=== PATIENT | male | born 1945 | race Caucasian/White ===

== ENCOUNTER 2023-09-12 10:56 | Observation (INO) | payer OTHER ==
[~2023-09-12 10:56] MED LIST: Lactated Ringers 1,000 ML IV ONE
[2023-09-12] MEDS: Ak-Dilate OPHTHALMIC*** 1.065 ML, Cyclogyl 1% OPHTH SOL 1.065 ML, GATIFLOXACIN 0.5% OPH... OP ONE (11:37)
[2023-09-12] MEDS: TETRACAINE 0.5% STERI-UNIT SOL OP ONE ×2 (11:37→11:56)
[2023-09-12] MEDS: Lactated Ringers 1,000 ML IV SCH (11:38)
[2023-09-12] MEDS ORDERED: Zofran 4 MG/2 ML VIAL IV PRN (12:30)
[2023-09-12] MEDS ORDERED: Epinephrine Preservative Free 1 MG/ML IJ ONE (12:30)
[2023-09-12] MEDS ORDERED: DIPRIVAN 200 MG/20 ML IV ONE (13:04)
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
[2023-09-12] MEDS ORDERED: MEDICATION INTERVENTION MC SCH (14:30)
[2023-09-12 14:35] LABS: Hematocrit 38.7 % (40.1-51.0); Hemoglobin 12.8 g/dL (13.7-17.5); Mean Cell Volume 94.4 fL (79.0-92.2); Mean Corpuscular Hemoglobin 31.2 pg (25.7-32.2); Mean Corpuscular Hgb Concent. 33.1 g/dL (32.3-36.5); Mean Platelet Volume 10.7 fL (9.4-12.4); Platelet Count 132 x10^3/uL (163-337); Red Cell Distribution Width 12.6 % (11.6-14.4); White Blood Count 5.5 x10^3/uL (4.23-9.07)
[2023-09-12] MEDS ORDERED: Coreg 3.125 MG PO SCH (15:00)
[2023-09-12] MEDS ORDERED: Lanoxin 0.125MG TABLET PO SCH (15:00)
[2023-09-12 15:17] LABS: ALBUMIN 4.4 g/dL (3.5-5.0); ANION GAP 13.8 MEQ/L (5-15); BILIRUBIN,TOTAL 0.6 mg/dL (0.2-1.3); Creatinine 1 1.17 mg/dL (0.66-1.25); EST GLOMERULAR FILTRATION RATE 63.4 ML/MIN; MAGNESIUM 2.2 mg/dL (1.6-2.3); Potassium 4.5 mmol/L (3.5-5.1); TSH, 3RD Generation 0.482 mIU/L (0.470-4.680); Total Protein 7.7 g/dL (6.3-8.2)
[2023-09-12] MEDS: ENTRESTO 49 MG-51 MG TABLET PO SCH (15:40)
[2023-09-12] MEDS: Cyclobenzaprine 10 MG PO SCH (15:40)
[2023-09-12] MEDS: ECOTRIN 81 MG PO SCH (15:40)
[2023-09-12] MEDS: MAG-OX 400 PO SCH (15:41)
[2023-09-12] MEDS: Vitamin B-12 500 MCG PO SCH (15:41)
[2023-09-12] MEDS: Coreg 3.125 MG PO ONE (15:41)
[2023-09-12] MEDS: ZOCOR 20MG PO SCH (15:41)
[2023-09-12] MEDS: SYNTHROID 88 MCG PO SCH (15:41)
[2023-09-12] MEDS: BUMEX 1 MG PO SCH (15:44)
[2023-09-12] MEDS: BETADINE 5% OPHTHALMIC 30 ML OP ONE (21:44)
[2023-09-12] MEDS: cefUROXime sodium 0.005 GM in Sodium Chloride Flush 30 ML*** 0.5 ML IJ ONE (21:44)
[2023-09-12] MEDS: NON-FORMULARY ITEM OP ONE (21:45)
[2023-09-12] MEDS: ACETAZOLAMIDE 250 MG TABLET PO ONE (21:45)
[2023-09-13 05:06] LABS: Hematocrit 36.2 % (40.1-51.0); Hemoglobin 11.8 g/dL (13.7-17.5); Mean Cell Volume 94.5 fL (79.0-92.2); Mean Corpuscular Hemoglobin 30.8 pg (25.7-32.2); Mean Corpuscular Hgb Concent. 32.6 g/dL (32.3-36.5); Mean Platelet Volume 11.5 fL (9.4-12.4); Platelet Count 139 x10^3/uL (163-337); Red Blood Count 3.83 x10^6/uL (4.63-6.08); Red Cell Distribution Width 13.1 % (11.6-14.4); White Blood Count 5.5 x10^3/uL (4.23-9.07)
[2023-09-13 05:13] VITALS: RESP 17
[2023-09-13 05:32] LABS: ALBUMIN 3.6 g/dL (3.5-5.0); BILIRUBIN,TOTAL 0.6 mg/dL (0.2-1.3); Calcium 9.4 mg/dL (8.4-10.2); Creatinine 1 0.99 mg/dL (0.66-1.25); EST GLOMERULAR FILTRATION RATE 77.5 ML/MIN; Potassium 4.2 mmol/L (3.5-5.1); Total Protein 6.2 g/dL (6.3-8.2)
[2023-09-13 06:07] VITALS: O2SAT 94
[2023-09-13 07:33] VITALS: TEMP 97.6
[2023-09-13] MEDS: Flomax 0.4 MG PO SCH (09:12)
[2023-09-13] MEDS: Lanoxin 0.125MG TABLET PO SCH (09:13)
[2023-09-13] MEDS: Coreg 3.125 MG PO SCH (09:13)
[2023-09-13 09:14] VITALS: BP 116/56; PULSE 71
[2023-09-13] MEDS: Artificial Tears 15 ML OP SCH (09:14)
[2023-09-13] MEDS: PATIENT OWN MEDICATION OP SCH (09:29)
--- NOTE | 2023-09-13 09:32 | PCM.DS ---
Discharge Summary Date of Admission: 09/12/23 14:07 Date of Discharge: 09/13/23 Admitting Physician: DIANNA BLANTON MD Consults: Consults on Case 09/12/23 14:18 Consult Cardiology ROUTINE Primary Care Provider: [facility] Allergies Allergies No Known Drug Allergies Allergy (Verified 09/12/23 11:06) Hospital Summary - Hospital Course Hospital Course: 09/12/23 is a 78 year old male with pmhx of CHF, type II DM, BPH, hypothyroidism, hyerlipidemia, HTN, vitamin B12 deficiency, magnesium deficiency, and vitamin B12 deficiency. Today he has a cataract removal of the left eye. He did not take any of his medications today. Post op EKG shows left bundle branch block. Echo and EKG ordered when pt arrived on the unit. He is in the ICU on tele. He is now bradycardic. IVF stopped d/t heart hx. Tele- cardiology consulted. Beta ivral, and digoxin held for now. HR 50. Pt may need transferred to higher level of care, awaiting cardiology recs. Pre and post procedure EKG reviewed. He denies CP or SOB. He explained he feels fine. Discussed with pt and in detail heart arrhythmia and that cardiology will discuss as well today. He denies any further concerns at this time. 09/13/23 Pt sitting up in bed. He states he feels fine. No CP, no eye pain from surgery. Restarted home meds today that were held yesterday. Will see how pt tolerates. Awaiting official cardiology consult records. If OK with cardiology can d/c today. He continues to have some bigeminy beats intermittently but no associated sxs. He denies CP, SOB, abd. pain, N/V/D. - Vitals & Intake/Output Vital Signs: Vital Signs Temperature 97.6 F 09/13/23 07:00 Pulse Rate 71 09/13/23 09:13 Respiratory Rate 17 09/13/23 07:00 Blood Pressure 116/56 09/13/23 09:13 O2 Sat by Pulse Oximetry 94 L 09/13/23 07:17 Intake & Output: Intake & Output 09/10/23 09/11/23 09/12/23 09/13/23 11:59 11:59 11:59 11:59 Intake Total 360 Output Total 0 Balance 360 Weight 73.8 kg 75.2 kg - Lab Result Diagrams: 09/13/23 04:18 09/13/23 04:18 Lab Results-Last 24 Hrs: Lab Results-Last 24 Hours 09/12/23 09/12/23 09/12/23 Range/Units 11:36 14:25 14:25 WBC 5.5 (4.23-9.07) x10^3/uL RBC 4.10 L (4.63-6.08) x10^6/uL Hgb 12.8 L (13.7-17.5) g/dL Hct 38.7 L (40.1-51.0) % MCV 94.4 H (79.0-92.2) fL MCH 31.2 (25.7-32.2) pg MCHC 33.1 (32.3-36.5) g/dL RDW 12.6 (11.6-14.4) % Plt Count 132 L (163-337) x10^3/uL MPV 10.7 (9.4-12.4) fL Sodium 140 (135-145) mmol/L Potassium 4.5 (3.5-5.1) mmol/L Chloride 106 (98-107) mmol/L Carbon Dioxide 25 (22-30) mmol/L Anion Gap 13.8 (5-15) MEQ/L BUN 36 H (9-20) mg/dL Creatinine 1.17 (0.66-1.25) mg/dL Estimated GFR 63.4 ML/MIN Glucose 113 H (74-106) mg/dL POC Glucometer 137 H (74 to 106) mg/dL Hemoglobin A1c (4.5-6.0) % Calcium 10.0 (8.4-10.2) mg/dL Magnesium 2.2 (1.6-2.3) mg/dL Total Bilirubin 0.60 (0.2-1.3) mg/dL AST 27 (17-59) U/L ALT 28 (0-50) U/L Alkaline Phosphatase 65 (38-126) U/L Troponin I (0.000-0.033) ng/mL Serum Total Protein 7.7 (6.3-8.2) g/dL Albumin 4.4 (3.5-5.0) g/dL Triglycerides (30-150) mg/dL Cholesterol (50-200) mg/dL LDL Cholesterol (30-100) mg/dL HDL Cholesterol (40-60) mg/dL Heart Disease Risk Ratio TSH 3rd Generation 0.482 (0.470-4.680) mIU/L 09/12/23 09/12/23 09/12/23 Range/Units 14:25 14:30 16:43 WBC (4.23-9.07) x10^3/uL RBC (4.63-6.08) x10^6/uL Hgb (13.7-17.5) g/dL Hct (40.1-51.0) % MCV (79.0-92.2) fL MCH (25.7-32.2) pg MCHC (32.3-36.5) g/dL RDW (11.6-14.4) % Plt Count (163-337) x10^3/uL MPV (9.4-12.4) fL Sodium (135-145) mmol/L Potassium (3.5-5.1) mmol/L Chloride (98-107) mmol/L Carbon Dioxide (22-30) mmol/L Anion Gap (5-15) MEQ/L BUN (9-20) mg/dL Creatinine (0.66-1.25) mg/dL Estimated GFR ML/MIN Glucose (74-106) mg/dL POC Glucometer 192 H (74 to 106) mg/dL Hemoglobin A1c 7.93 H (4.5-6.0) % Calcium (8.4-10.2) mg/dL Magnesium (1.6-2.3) mg/dL Total Bilirubin (0.2-1.3) mg/dL AST (17-59) U/L ALT (0-50) U/L Alkaline Phosphatase (38-126) U/L Troponin I < 0.012 (0.000-0.033) ng/mL Serum Total Protein (6.3-8.2) g/dL Albumin (3.5-5.0) g/dL Triglycerides (30-150) mg/dL Cholesterol (50-200) mg/dL LDL Cholesterol (30-100) mg/dL HDL Cholesterol (40-60) mg/dL Heart Disease Risk Ratio TSH 3rd Generation (0.470-4.680) mIU/L 09/12/23 09/12/23 09/13/23 Range/Units 19:35 21:58 00:00 WBC (4.23-9.07) x10^3/uL RBC (4.63-6.08) x10^6/uL Hgb (13.7-17.5) g/dL Hct (40.1-51.0) % MCV (79.0-92.2) fL MCH (25.7-32.2) pg MCHC (32.3-36.5) g/dL RDW (11.6-14.4) % Plt Count (163-337) x10^3/uL MPV (9.4-12.4) fL Sodium (135-145) mmol/L Potassium (3.5-5.1) mmol/L Chloride (98-107) mmol/L Carbon Dioxide (22-30) mmol/L Anion Gap (5-15) MEQ/L BUN (9-20) mg/dL Creatinine (0.66-1.25) mg/dL Estimated GFR ML/MIN Glucose (74-106) mg/dL POC Glucometer 169 H (74 to 106) mg/dL Hemoglobin A1c (4.5-6.0) % Calcium (8.4-10.2) mg/dL Magnesium (1.6-2.3) mg/dL Total Bilirubin (0.2-1.3) mg/dL AST (17-59) U/L ALT (0-50) U/L Alkaline Phosphatase (38-126) U/L Troponin I < 0.012 < 0.012 (0.000-0.033) ng/mL Serum Total Protein (6.3-8.2) g/dL Albumin (3.5-5.0) g/dL Triglycerides (30-150) mg/dL Cholesterol (50-200) mg/dL LDL Cholesterol (30-100) mg/dL HDL Cholesterol (40-60) mg/dL Heart Disease Risk Ratio TSH 3rd Generation (0.470-4.680) mIU/L 09/13/23 09/13/23 09/13/23 Range/Units 04:18 04:18 04:18 WBC 5.5 (4.23-9.07) x10^3/uL RBC 3.83 L (4.63-6.08) x10^6/uL Hgb 11.8 L (13.7-17.5) g/dL Hct 36.2 L (40.1-51.0) % MCV 94.5 H (79.0-92.2) fL MCH 30.8 (25.7-32.2) pg MCHC 32.6 (32.3-36.5) g/dL RDW 13.1 (11.6-14.4) % Plt Count 139 L (163-337) x10^3/uL MPV 11.5 (9.4-12.4) fL Sodium (135-145) mmol/L Potassium (3.5-5.1) mmol/L Chloride (98-107) mmol/L Carbon Dioxide (22-30) mmol/L Anion Gap (5-15) MEQ/L BUN (9-20) mg/dL Creatinine (0.66-1.25) mg/dL Estimated GFR ML/MIN Glucose (74-106) mg/dL POC Glucometer (74 to 106) mg/dL Hemoglobin A1c (4.5-6.0) % Calcium (8.4-10.2) mg/dL Magnesium 2.1 (1.6-2.3) mg/dL Total Bilirubin (0.2-1.3) mg/dL AST (17-59) U/L ALT (0-50) U/L Alkaline Phosphatase (38-126) U/L Troponin I (0.000-0.033) ng/mL Serum Total Protein (6.3-8.2) g/dL Albumin (3.5-5.0) g/dL Triglycerides 177 H (30-150) mg/dL Cholesterol 123 (50-200) mg/dL LDL Cholesterol 67 (30-100) mg/dL HDL Cholesterol 23 L (40-60) mg/dL Heart Disease Risk Ratio 5.0 TSH 3rd Generation (0.470-4.680) mIU/L 09/13/23 09/13/23 Range/Units 04:18 06:57 WBC (4.23-9.07) x10^3/uL RBC (4.63-6.08) x10^6/uL Hgb (13.7-17.5) g/dL Hct (40.1-51.0) % MCV (79.0-92.2) fL MCH (25.7-32.2) pg MCHC (32.3-36.5) g/dL RDW (11.6-14.4) % Plt Count (163-337) x10^3/uL MPV (9.4-12.4) fL Sodium 139 (135-145) mmol/L Potassium 4.2 (3.5-5.1) mmol/L Chloride 107 (98-107) mmol/L Carbon Dioxide 23 (22-30) mmol/L Anion Gap 13.0 (5-15) MEQ/L BUN 28 H (9-20) mg/dL Creatinine 0.99 (0.66-1.25) mg/dL Estimated GFR 77.5 ML/MIN Glucose 130 H (74-106) mg/dL POC Glucometer 131 H (74 to 106) mg/dL Hemoglobin A1c (4.5-6.0) % Calcium 9.4 (8.4-10.2) mg/dL Magnesium (1.6-2.3) mg/dL Total Bilirubin 0.60 (0.2-1.3) mg/dL AST 23 (17-59) U/L ALT 22 (0-50) U/L Alkaline Phosphatase 55 (38-126) U/L Troponin I (0.000-0.033) ng/mL Serum Total Protein 6.2 L (6.3-8.2) g/dL Albumin 3.6 (3.5-5.0) g/dL Triglycerides (30-150) mg/dL Cholesterol (50-200) mg/dL LDL Cholesterol (30-100) mg/dL HDL Cholesterol (40-60) mg/dL Heart Disease Risk Ratio TSH 3rd Generation (0.470-4.680) mIU/L Micro Results-Entire Visit: Accuchecks Date 09/13/23 Date 09/12/23 Date 09/12/23 Time 21:58 Time 16:47 - Radiology Exams Ordered Rad Exams-Entire Visit: Radiology Procedures Category Date Time Status ECHO W/2D AND DOPPLER [US] Routine Exams 09/12/23 14:26 Taken - Procedures and Test Procedures and Tests throughout Hospitalization: Therapy Orders & Screens 09/12/23 11:04 EKG STAT Comment: 09/12/23 13:40 EKG ONCE Comment: Diagnosis: senile cataract left eye 09/12/23 14:23 EKG REPEAT IN AM Comment: Diagnosis: senile cataract left eye, arrythmia EKG STAT Comment: Diagnosis: senile cataract left eye, arrythmia 09/12/23 14:42 Oxygen Nasal Cannula 2 lpm Comment: Diagnosis: senile cataract left eye, arrythmia Discharge Exam General Appearance: no apparent distress, alert Neurologic Exam: alert, oriented x 3, cooperative, normal mood/affect, nml cerebellar function, sensation nml, No motor deficits Eye Exam: PERRL, EOMI, eyes nml inspection Ears, Nose, Throat Exam: normal ENT inspection, pharynx normal, moist mucous membranes Neck Exam: normal inspection, non-tender, supple, full range of motion Respiratory Exam: normal breath sounds, lungs clear, No respiratory distress Cardiovascular Exam: normal heart sounds, irregular Gastrointestinal/Abdomen Exam: soft, No tenderness, No mass Male Genitalia Exam: deferred Rectal Exam: deferred Back Exam: normal inspection, normal range of motion, No CVA tenderness, No vertebral tenderness Extremity Exam: normal inspection, normal range of motion Skin Exam: normal color, warm, dry Final Diagnosis/Problem List - Final Discharge Diagnosis/Problem (1) Arrhythmia Current Visit: Yes Status: Acute Code(s): I49.9 - CARDIAC ARRHYTHMIA, UNSPECIFIED (2) Postoperative care for cataract of left eye Current Visit: Yes Status: Acute Code(s): Z48.810 - ENCNTR FOR SURGICAL AFTCR FOL SURGERY ON THE SENSE ORGANS; Z98.42 - CATARACT EXTRACTION STATUS, LEFT EYE (3) CHF (congestive heart failure) Current Visit: Yes Status: Chronic Code(s): I50.9 - HEART FAILURE, UNSPECIFI ED (4) Type II diabetes mellitus Current Visit: Yes Status: Chronic (5) Hypothyroidism Current Visit: Yes Status: Chronic Code(s): E03.9 - HYPOTHYROIDISM, UNSPECIFIED (6) Hyperlipemia Current Visit: Yes Status: Chronic Code(s): E78.5 - HYPERLIPIDEMIA, UNSPECIFIED (7) HTN (hypertension) Current Visit: Yes Status: Chronic Assessment & Plan: (1) Arrhythmia Current Visit: Yes Status: Acute Assessment & Plan: - ICU- Tele - EKG's x3 reviewed - Pre- op EKG HR 52 SR with probable ischemia - Post op EKG procedure today in OR-left bundle branch block - denies CP - Coreg, and Digoxin held - tele- cardiology consult - Per cardiology restart Coreg - Echo 09/12 - Echo and cardilogy consult report pending - Discussed Pt case with cardiology- he wants to reach out to pt's political anthropologist before d/c. - EF 25% Code(s): I49.9 - CARDIAC ARRHYTHMIA, UNSPECIFIED (2) Postoperative care for cataract of left eye Current Visit: Yes Status: Acute Assessment & Plan: - Post op left eye cataract surgery today. - Continue eye drops per surgeon - protective eye patch to left eye Code(s): Z48.810 - ENCNTR FOR SURGICAL AFTCR FOL SURGERY ON THE SENSE ORGANS; Z98.42 - CATARACT EXTRACTION STATUS, LEFT EYE (3) CHF (congestive heart failure) Current Visit: Yes Status: Chronic Assessment & Plan: - chronic- continue home meds - Follows cardiology at [place] Code(s): I50.9 - HEART FAILURE, UNSPECIFIED (4) Type II diabetes mellitus Current Visit: Yes Status: Chronic Assessment & Plan: - Continue oral meds - A1C (5) Hypothyroidism Current Visit: Yes Status: Chronic Assessment & Plan: - TSH - Continue synthroid Code(s): E03.9 - HYPOTHYROIDISM, UNSPECIFIED (6) Hyperlipemia Current Visit: Yes Status: Chronic Assessment & Plan: - Continue statin - Lipid profile Code(s): E78.5 - HYPERLIPIDEMIA, UNSPECIFIED (7) HTN (hypertension) Current Visit: Yes Status: Chronic Assessment & Plan: - did not take meds today as required for procedure - Continue coreg per cardiology Code(s): I10 - ESSENTIAL (PRIMARY) HYPERTENSION - Discharge Discharge Date: 09/13/23 Disposition: Home, Self-Care Condition: Stable Prescriptions: Continue Tamsulosin HCl 0.4 mg [Flomax 0.4 MG] 0.4 mg PO DAILY Simvastatin 40 mg PO DAILY Sacubitril/Valsartan [Entresto 49 mg-51 mg Tablet] 1 each PO BID Peg 400/Hypromellose/Glycerin [Artificial Tears Drops] 15 ml OP DAILY Magnesium Oxide 400 mg [Mag-Ox 400] 400 mg PO DAILY Levothyroxine Sodium 88 Mcg [Synthroid 88 Mcg] 88 mcg PO DAILY Eplerenone [Inspra] 25 mg PO DAILY Digoxin 0.125 mg Tablet [Lanoxin 0.125MG TABLET] 0.125 mg PO DAILY Cyclobenzaprine HCl 10 mg [Cyclobenzaprine 10 MG] 10 mg PO DAILY Cyanocobalamin (Vitamin B-12) [Vitamin B-12] 1,000 mcg PO DAILY Carvedilol 3.125 mg [Coreg 3.125 MG] 3.125 mg PO BID Bumetanide 1 mg [Bumex 1 mg] 1 tab PO DAILY Aspirin 81 mg PO DAILY Instructions: Heart Block, Adult (DC) Additional Instructions: [facility] REPRESENT[facility] WILL CALL YOU TO GET YOUR APPOINTMENT MOVED UP. IF YOU DO NOT HEAR FROM THEN BY THE END OF THE WEEK, REACH OUT TO THEM. FOLLOW POSTOPERATIVE INSTRUCTIONS FROM CATARACT SURGERY. Follow up with: HOSPITAL,'S [Primary Care Provider] - Forms: Discharge Instructions
[2023-09-13] MEDS ORDERED: EPLERENONE 25 MG PO SCH (10:00)
[2023-09-13] MEDS ORDERED: Coreg 3.125 MG PO ONE (15:01)
== END 2023-09-13 11:25 | disposition home or self-care (01) ==
LOC: SDC 10:56 → ICU 14:07
PROVIDERS: ADMIT Internal Medicine; ATTEND Internal Medicine
DX: I49.9 Cardiac arrhythmia, unspecified (principal); Z98.42 Cataract extraction status, left eye; I11.0 Hypertensive heart disease with heart failure; I50.9 Heart failure, unspecified; E11.9 Type 2 diabetes mellitus without complications; E03.9 Hypothyroidism, unspecified; E78.5 Hyperlipidemia, unspecified; H25.812 Combined forms of age-related cataract, left eye; N40.0 Benign prostatic hyperplasia without lower urinary tract symptoms; E53.8 Deficiency of other specified B group vitamins; Z79.899 Other long term (current) drug therapy
CPT/HCPCS: 36415; 66984; 80053; 80061; 82947; 83036; 83721; 83735; 84443; 84484; 85027; 93005; 93306; Q3014; 93268; 99100; C1780; J0171; J2704; A9270-GY; G0378